=== PATIENT | female | born 1990 | race Caucasian/White ===

== ENCOUNTER 2024-07-03 14:51 | Observation (INO) | payer BC ==
[2024-07-03 14:58] VITALS: RESP 18; BMI 32.2
[2024-07-03] MEDS ORDERED: METOCLOPRAMIDE HCL INJECTION 10 MG/2 ML VIAL ONE (16:53)
[2024-07-03] MEDS ORDERED: ACETAMINOPHEN INJECTION 100 ML ONE (16:53)
[2024-07-03 17:58] LABS: BASO % 0.3 % (0-2.0); EOS % 1.3 % (0-4.5); HEMATOCRIT 36.5 % (32.4-45.2); HEMOGLOBIN 11.7 GM/dL (10.7-15.3); LYMPH % 5.7 % (8-40); MCH 27.1 pg (25.7-33.7); MEAN CELL VOLUME 84.8 fl (80-96); MEAN PLT VOLUME 8.7 fl (7.5-11.1); MONO % 3.9 % (3.8-10.2); NEUT % 88.8 % (42.8-82.8); PLATELET COUNT 272 10^3/uL (134-434); RBC 4.31 M/mm3 (3.60-5.2); RDW 17.5 % (11.6-15.6); WHITE BLOOD COUNT 11.3 K/mm3 (4.0-10.0)
[2024-07-03] MEDS: LACTATED RINGERS SOLUTION 1000 ML INFUS.BAG IV ONE (17:59)
[2024-07-03] MEDS: ACETAMINOPHEN 1000 MG/100 ML BAG IVPB ONE (17:59)
[2024-07-03] MEDS: METOCLOPRAMIDE HCL INJECTION 10 MG/2 ML VIAL IVPB ONE (18:00)
[2024-07-03 18:25] LABS: POTASSIUM 4.6 mmol/L (3.5-5.1)
[2024-07-03 18:27] LABS: ALBUMIN 2.9 g/dl (3.4-5.0); CALCIUM 9.5 mg/dL (8.5-10.1)
[2024-07-03 18:28] LABS: BLOOD UREA NITROGEN 8.7 mg/dL (7-18)
[2024-07-03 18:30] LABS: CREATININE 0.6 mg/dL (0.55-1.3)
[2024-07-03 18:32] LABS: BILIRUBIN,TOTAL 0.3 mg/dL (0.2-1); TOT PROT 7.1 g/dl (6.4-8.2)
[2024-07-03] MEDS ORDERED: MORPHINE SULFATE 2 MG/ML SYRINGE ONE (22:54)
[2024-07-03] MEDS: MORPHINE SULFATE 2 MG/ML SYRINGE IVPUSH ONE (22:59)
[2024-07-04] MEDS: ACETAMINOPHEN 1000 MG/100 ML BAG IVPB ONE ×2 (00:09→02:01)
[2024-07-04 08:25] LABS: PROTHROMBIN TIME (PATIENT) 11.5 SEC (9.7-13.0)
[2024-07-04 08:26] LABS: BASO % 0.3 % (0-2.0); EOS % 0.3 % (0-4.5); HEMATOCRIT 33.2 % (32.4-45.2); HEMOGLOBIN 10.7 GM/dL (10.7-15.3); LYMPH % 9.8 % (8-40); MCH 27.5 pg (25.7-33.7); MCHC 32.2 g/dl (32.0-36.0); MEAN CELL VOLUME 85.2 fl (80-96); MEAN PLT VOLUME 8.7 fl (7.5-11.1); MONO % 4.5 % (3.8-10.2); NEUT % 85.1 % (42.8-82.8); PLATELET COUNT 268 10^3/uL (134-434); RBC 3.89 M/mm3 (3.60-5.2); RDW 16.9 % (11.6-15.6)
[2024-07-04 08:28] LABS: ACTIVATED PTT 26.1 SECONDS (25.2-36.5)
[2024-07-04] MEDS ORDERED: LACTATED RINGERS SOLUTION 1,000 ML/1,000 ML INFUS.BAG IV SCH (08:30)
[2024-07-04 08:46] LABS: POTASSIUM 4.1 mmol/L (3.5-5.1)
[2024-07-04] MEDS: morphine SULFATE 4 MG/ML VIAL IVPUSH ONE (08:47)
[2024-07-04 08:54] LABS: ALBUMIN 2.6 g/dl (3.4-5.0); CALCIUM 8.7 mg/dL (8.5-10.1)
[2024-07-04 08:56] LABS: CREATININE 0.6 mg/dL (0.55-1.3)
[2024-07-04] MEDS: ACETAMINOPHEN 1000 MG/100 ML BAG IVPB SCH (08:57)
[2024-07-04 08:58] LABS: BILIRUBIN,TOTAL 0.3 mg/dL (0.2-1); TOT PROT 6.3 g/dl (6.4-8.2)
[2024-07-04] MEDS: CEFTRIAXONE 1 G/50 ML PREMIX 50 ML IVPB ONE (09:22)
[2024-07-04] MEDS: ACETAMINOPHEN 1000 MG/100 ML BAG IVPB PRN (18:00)
[2024-07-05 08:25] LABS: BASO % 0.2 % (0-2.0); EOS % 0.9 % (0-4.5); HEMATOCRIT 31.7 % (32.4-45.2); HEMOGLOBIN 10.6 GM/dL (10.7-15.3); LYMPH % 10.2 % (8-40); MCH 27.9 pg (25.7-33.7); MCHC 33.5 g/dl (32.0-36.0); MEAN CELL VOLUME 83.1 fl (80-96); MEAN PLT VOLUME 8.5 fl (7.5-11.1); MONO % 6.3 % (3.8-10.2); NEUT % 82.4 % (42.8-82.8); PLATELET COUNT 263 10^3/uL (134-434); RBC 3.82 M/mm3 (3.60-5.2); RDW 16.6 % (11.6-15.6)
[2024-07-05 08:34] LABS: POTASSIUM 3.9 mmol/L (3.5-5.1)
[2024-07-05 08:45] LABS: ALBUMIN 2.5 g/dl (3.4-5.0); BLOOD UREA NITROGEN 8.2 mg/dL (7-18); CALCIUM 8.4 mg/dL (8.5-10.1)
[2024-07-05 08:48] LABS: BILIRUBIN,TOTAL 0.2 mg/dL (0.2-1); TOT PROT 6.2 g/dl (6.4-8.2)
[2024-07-05 08:49] LABS: CREATININE 0.6 mg/dL (0.55-1.3)
[2024-07-05] MEDS: CEFTRIAXONE 1 G/50 ML PREMIX 50 ML IVPB SCH (11:13)
[2024-07-05] MEDS: ACETAMINOPHEN 1000 MG/100 ML BAG IVPB PRN (18:31)
[2024-07-06 08:43] LABS: POTASSIUM 3.8 mmol/L (3.5-5.1)
[2024-07-06 08:44] LABS: ALBUMIN 2.6 g/dl (3.4-5.0); CALCIUM 8.6 mg/dL (8.5-10.1)
[2024-07-06 08:45] LABS: BASO % 0.4 % (0-2.0); BLOOD UREA NITROGEN 9.2 mg/dL (7-18); EOS % 0.9 % (0-4.5); HEMATOCRIT 34.3 % (32.4-45.2); HEMOGLOBIN 11.1 GM/dL (10.7-15.3); LYMPH % 13.6 % (8-40); MCH 27.2 pg (25.7-33.7); MCHC 32.4 g/dl (32.0-36.0); MEAN CELL VOLUME 83.8 fl (80-96); MEAN PLT VOLUME 8.3 fl (7.5-11.1); MONO % 8.7 % (3.8-10.2); NEUT % 76.4 % (42.8-82.8); PLATELET COUNT 304 10^3/uL (134-434); RBC 4.09 M/mm3 (3.60-5.2); RDW 17.1 % (11.6-15.6); WHITE BLOOD COUNT 10.6 K/mm3 (4.0-10.0)
[2024-07-06 08:48] LABS: CREATININE 0.6 mg/dL (0.55-1.3)
[2024-07-06 08:49] LABS: BILIRUBIN,TOTAL 0.2 mg/dL (0.2-1)
[2024-07-06 08:50] LABS: TOT PROT 6.5 g/dl (6.4-8.2)
[2024-07-06 14:39] VITALS: PULSE 79
[2024-07-06 19:29] VITALS: BP 139/88; TEMP 98.4
== END 2024-07-06 06:30 | disposition home or self-care (01) ==
LOC: JER 14:51 → JERBED 19:20 → J4S 07-04 00:45
PROVIDERS: ADMIT Internal Medicine; ATTEND Internal Medicine
PROC: 3E0333Z Introduction of Anti-inflammatory into Peripheral Vein, Percutaneous Approach (ICD-10-PCS; principal; 2024-07-03)
PROC: 3E033NZ Introduction of Analgesics, Hypnotics, Sedatives into Peripheral Vein, Percutaneous Approach (ICD-10-PCS; 2024-07-03)
PROC: 3E0337Z Introduction of Electrolytic and Water Balance Substance into Peripheral Vein, Percutaneous Approach (ICD-10-PCS; 2024-07-03)
PROC: 3E033GC Introduction of Other Therapeutic Substance into Peripheral Vein, Percutaneous Approach (ICD-10-PCS; 2024-07-03)
DX: O90.89 Other complications of the puerperium, not elsewhere classified (principal); J32.9 Chronic sinusitis, unspecified; D72.829 Elevated white blood cell count, unspecified; E88.09 Other disorders of plasma-protein metabolism, not elsewhere classified; R70.0 Elevated erythrocyte sedimentation rate; R79.82 Elevated C-reactive protein (CRP)
CPT/HCPCS: 0241U-QW; 36415; 70450-TC; 70544-TC; 80053; 83735; 85025; 85610; 85651; 85730; 86140; 87040; 93005; 93010; 93970-TC; 99285-25; G0378; J0131